=== PATIENT | male | born 1995 | race Caucasian/White ===

== ENCOUNTER → 2018-06-12 | Emergency (ER) | payer OTHER ==
[2018-06-12 18:41] VITALS: BP 121/65; PULSE 62; TEMP 98; BMI 26.6
--- NOTE | 2018-06-12 19:43 | PDOC ---
History of Present Illness - General Chief Complaint: Injury Stated Complaint: HAND INJURY Time Seen by Provider: 06/12/18 18:49 History Source: Patient - History of Present Illness Occurred: reports: this evening Severity: reports: moderate Upper Extremity Pain Location: right: 4th finger Method of Injury: reports: direct blow Past History - Past Medical History Home Medications: Ambulatory Orders Naproxen [EC-Naprosyn] 500 mg PO BID PRN #14 tablet.ec 11/13/15 - Suicide/Smoking/Psychosocial Hx Smoking History: Never smoked Have you smoked in the past 12 months: No Information on smoking cessation initiated: No Hx Alcohol Use: No Drug/Substance Use Hx: No Review of Systems - Review of Systems Musculoskeletal: Yes: Joint Pain, Joint Swelling *Physical Exam - Vital Signs Last Vital Signs Temp Pulse Resp BP Pulse Ox 98.0 F 62 16 121/65 100 06/12/18 18:36 06/12/18 18:36 06/12/18 18:36 06/12/18 18:36 06/12/18 18:36 - Physical Exam General Appearance: Yes: Appropriately Dressed. No: Apparent Distress HEENT: positive: Normal Voice Neck: positive: Supple Respiratory/Chest: negative: Respiratory Distress Extremity: positive: Other (swellign w/ ecchymosis to L 4th finger including MCP joint, FROMI to finger, no snuff box ttp) Integumentary: positive: Dry, Warm Neurologic: positive: Fully Oriented, Alert, Normal Mood/Affect ED Treatment Course - RADIOLOGY Radiology Studies Ordered: Category Date Time Status HAND- LEFT [RAD] Stat Radiology 06/12/18 19:13 Taken Medical Decision Making - Medical Decision Making 06/12/18 19:43 22-year-old male, no significant history here with left 4th finger pain, swelling and ecchymosis after injury. Pt states while playing basketball yesterday, he jammed finger against ball. Patient well-appearing and stable with some swelling, ecchymosis to left 4th MCP. X-ray unremarkable for the most part with possible tiny chip fracture to base of proximal phalanx of left 4th digit. Finger splint placed and patient instructed to take Motrin as needed for pain and follow-up with orthopedics as needed in 2 weeks *DC/Admit/Observation/Transfer Diagnosis at time of Disposition: Hand sprain Qualifiers: Encounter type: initial encounter Laterality: left Qualified Code(s): S63.92XA - Sprain of unspecified part of left wrist and hand, initial encounter - Discharge Dispostion Disposition: HOME Condition at time of disposition: Good - Referrals Referrals: Artur Slater MD [Staff Physician] - - Patient Instructions Printed Discharge Instructions: DI for Finger Sprain Additional Instructions: X-ray did not show any fracture. Apply ice to area of swelling and take Motrin as needed. If symptoms persist after 2 weeks, please follow-up with Dr. Slater of orthopedics - Post Discharge Activity Forms/Work/School Notes: Back to Work
--- NOTE | 2018-06-13 08:41 | PDOC ---
Patient Follow-up (Call Back) - Post ED Follow - Up Condition at time of discharge: Good Disposition at time of original discharge: HOME Reason for Call Back: Radiology (Discussed results with patient's mother who states she and pt will f/u with ortho anyi.)
--- NOTE | 2018-06-13 08:48 | PDOC ---
*Physical Exam - Vital Signs Last Vital Signs Temp Pulse Resp BP Pulse Ox 98.0 F 62 16 121/65 100 06/12/18 18:36 06/12/18 18:36 06/12/18 18:36 06/12/18 18:36 06/12/18 18:36 Medical Decision Making - Medical Decision Making Radiology called with results of hand x-ray for Dr. Gonzales. Radiologist stated that there was a fracture of the 4th digit proximal phalynx, and recommended splinting and ortho follow-up. Pt had been discharged by this time. I called the fast-track team who took report and will contact the patient. 06/13/18 08:46 *DC/Admit/Observation/Transfer Diagnosis at time of Disposition: Hand sprain Qualifiers: Encounter type: initial encounter Laterality: left Qualified Code(s): S63.92XA - Sprain of unspecified part of left wrist and hand, initial encounter - Discharge Dispostion Disposition: HOME Condition at time of disposition: Good - Referrals Referrals: Artur Slater MD [Staff Physician] - - Patient Instructions Printed Discharge Instructions: DI for Finger Sprain Additional Instructions: X-ray did not show any fracture. Apply ice to area of swelling and take Motrin as needed. If symptoms persist after 2 weeks, please follow-up with Dr. Slater of orthopedics - Post Discharge Activity Forms/Work/School Notes: Back to Work
== END | disposition home or self-care (01) ==
LOC: JERFT 18:30
PROC: 2W3KX1Z Immobilization of Left Finger using Splint (ICD-10-PCS; principal; 2018-06-12)
DX: S62.645A Nondisplaced fracture of proximal phalanx of left ring finger, initial encounter for closed fracture (principal); W21.05XA Struck by basketball, initial encounter; Y93.67 Activity, basketball; Y92.310 Basketball court as the place of occurrence of the external cause; Y99.8 Other external cause status
CPT/HCPCS: 29130; 73130-TC-LR-FY; 99281-25

== ENCOUNTER 2019-03-26 15:11 | Emergency (ER) | payer OTHER ==
[2019-03-26 15:16] VITALS: BP 123/72; PULSE 84; TEMP 98; BMI 25.8
[2019-03-26] MEDS ORDERED: IBUPROFEN 400 MG TABLET (FP) PO ONE ×2 (15:35→15:37)
--- NOTE | 2019-03-26 15:39 | PDOC ---
History of Present Illness - General Chief Complaint: Pain Stated Complaint: RT ANKLE SPRAIN Time Seen by Provider: 03/26/19 15:16 History Source: Patient - History of Present Illness Occurred: reports: this morning Severity: Yes: moderate Lower Extremity Pain Location: right: ankle Method of Injury: Yes: fell, twisted Past History - Past Medical History Allergies/Adverse Reactions: Allergies Allergy/AdvReac Type Severity Reaction Status Date / Time No Known Allergies Allergy Verified 03/26/19 15:15 Home Medications: Ambulatory Orders Naproxen [EC-Naprosyn] 500 mg PO BID PRN #14 tablet.ec 11/13/15 COPD: No - Suicide/Smoking/Psychosocial Hx Smoking History: Never smoked Have you smoked in the past 12 months: No Hx Alcohol Use: No Drug/Substance Use Hx: No Review of Systems - Review of Systems Musculoskeletal: Yes: Joint Pain, Joint Swelling *Physical Exam - Vital Signs Last Vital Signs Temp Pulse Resp BP Pulse Ox 98 F 84 18 123/72 98 03/26/19 15:12 03/26/19 15:12 03/26/19 15:12 03/26/19 15:12 03/26/19 15:12 - Physical Exam General Appearance: Yes: Appropriately Dressed, Mild Distress HEENT: positive: Normal Voice Extremity: positive: Tender (over R 5th proximal metatarsal/lateral malleolus, no sig swelling, NVI) Integumentary: positive: Dry, Warm Neurologic: positive: Fully Oriented, Alert, Normal Mood/Affect ED Treatment Course - RADIOLOGY Radiology Studies Ordered: Category Date Time Status ANKLE & FOOT-RIGHT* [RAD] Stat Radiology 03/26/19 15:19 Taken Medical Decision Making - Medical Decision Making 03/26/19 15:36 23 yo M, here w/ R ankle pain/swelling s/p twisting injury/fall this am. Able to bear weight but painful See exam R/o ankle fx -pain control -XR 03/26/19 15:42 XR neg for fx. EDUARDO applied and crutches given. To take motrin prn and f/u with orthopedics as needed *DC/Admit/Observation/Transfer Diagnosis at time of Disposition: Ankle sprain Qualifiers: Encounter type: initial encounter Involved ligament of ankle: unspecified ligament Laterality: right Qualified Code(s): S93.401A - Sprain of unspecified ligament of right ankle, initial encounter - Discharge Dispostion Disposition: HOME Condition at time of disposition: Good - Referrals - Patient Instructions Printed Discharge Instructions: DI for Ankle Sprain Additional Instructions: Use Eduardo and ice for swelling as needed. Take Motrin for pain and use crutches for assisted with weight bearing. If pain persist after 2 weeks, please follow-up with Dr. Delgado of orthopedics - Post Discharge Activity Forms/Work/School Notes: Back to Work
== END 2019-03-26 15:56 | disposition home or self-care (01) ==
LOC: JERFT 15:11
DX: S93.401A Sprain of unspecified ligament of right ankle, initial encounter (principal); W18.39XA Other fall on same level, initial encounter; Y93.89 Activity, other specified; Y92.89 Other specified places as the place of occurrence of the external cause; Y99.8 Other external cause status
CPT/HCPCS: 73610-TC-RT-FY; 73630-TC-RT-FY; 99281-25

== ENCOUNTER 2019-08-17 16:39 | Emergency (ER) | payer OTHER ==
[2019-08-17 16:53] VITALS: BP 122/54; PULSE 64; TEMP 98.4; BMI 24.3
[2019-08-17] MEDS ORDERED: DIPHTH,PERTUSS(ACELL),TET VAC 0.5 ML VIAL IM ONE (16:56)
--- NOTE | 2019-08-17 16:56 | PDOC ---
Rapid Medical Evaluation Chief Complaint: Laceration Time Seen by Provider: 08/17/19 16:50 Medical Evaluation: Allergies Allergy/AdvReac Type Severity Reaction Status Date / Time No Known Allergies Allergy Verified 08/17/19 16:49 08/17/19 16:50 23 year old c/o left index finger laceration reports cutting finger with a kitchen knife PE: patient alert ox3 + skin avulsion to the right index finger A: finger avulsion P: patient to the er for further management of care,. tetanus Discharge Disposition - Diagnosis Fingertip avulsion Qualifiers: Encounter type: initial encounter Qualified Code(s): S61.209A - Unspecified open wound of unspecified finger without damage to nail, initial encounter - Referrals - Patient Instructions - Post Discharge Activity
[2019-08-17] MEDS ORDERED: DIPHTH,PERTUSS(ACELL),TET 0.5 ML DISP.SYRIN IM ONE ×2 (17:09→17:11)
--- NOTE | 2019-08-17 17:21 | PDOC ---
History of Present Illness - General Chief Complaint: Laceration Stated Complaint: LACERATION Time Seen by Provider: 08/17/19 16:50 History Source: Patient Exam Limitations: No Limitations Past History - Past Medical History Allergies/Adverse Reactions: Allergies Allergy/AdvReac Type Severity Reaction Status Date / Time No Known Allergies Allergy Verified 08/17/19 16:49 Home Medications: Ambulatory Orders NK [No Known Home Medication] 08/17/19 COPD: No - Immunization History Immunization Up to Date: Yes - Psycho Social/Smoking Cessation Hx Smoking History: Current every day smoker Have you smoked in the past 12 months: No Information on smoking cessation initiated: No Hx Alcohol Use: No Drug/Substance Use Hx: No *Physical Exam - Vital Signs Last Vital Signs Temp Pulse Resp BP Pulse Ox 98.4 F 64 17 122/54 L 99 08/17/19 16:49 08/17/19 16:49 08/17/19 16:49 08/17/19 16:49 08/17/19 16:49 - Physical Exam General Appearance: No: Apparent Distress Extremity: positive: Other (+skin avulsed at tip of L index finger, nail spared , no active bleeding, no deformity of finger noted) Neurologic: positive: Alert ED Treatment Course - Medications Given in the ED: ED Medications Discontinued Medications Generic Name Dose Route Start Last Admin Trade Name Freq PRN Reason Stop Dose Admin Diphtheria/Tetanus/Acell Pertussis 0.5 ml 08/17/19 16:56 08/17/19 17:10 Adacel Adolescent/Adult - IM 08/17/19 16:57 Not Given .ONCE ONE Diphtheria/Tetanus/Acell Pertussis 0.5 ml 08/17/19 17:09 08/17/19 17:13 Boostrix - IM 08/17/19 17:10 0.5 ml .ONCE ONE Administration Medical Decision Making - Medical Decision Making 23 y/o M with no sig pmh presents with injury to L index finger from today. States he was cutting meat and cut tip of finger. Unsure of last tetanus. Denies other complaints. Site around wound cleaned with hydrogen peroxide Site covered with xeroform and sterile dressing Tetanus updated stable for dc 08/17/19 17:18 Discharge - Discharge Information Problems reviewed: Yes Clinical Impression/Diagnosis: Fingertip avulsion Qualifiers: Encounter type: initial encounter Qualified Code(s): S61.209A - Unspecified open wound of unspecified finger without damage to nail, initial encounter Condition: Stable Disposition: HOME - Admission No - Additional Discharge Information Prescription Drug Monitoring Program (I-STOP) results: I-STOP not reviewed - Follow up/Referral Referrals: Jane Sorto MD [Primary Care Provider] - - Patient Discharge Instructions Additional Instructions: Thank you for choosing [facility]. It was a pleasure taking care of you. You may change the dressing 1-2 times a day You may also apply Neosporin if you do not have Xeroform dressing available Return to the Emergency Department if your symptoms worsen or persist, you have fever, redness, streaking, purulent drainage, swelling or other concerning symptoms. - Post Discharge Activity
== END 2019-08-17 17:22 | disposition home or self-care (01) ==
LOC: JERFT 16:39
PROC: 3E0234Z Introduction of Serum, Toxoid and Vaccine into Muscle, Percutaneous Approach (ICD-10-PCS; principal; 2019-08-17)
DX: S61.201A Unspecified open wound of left index finger without damage to nail, initial encounter (principal); W26.0XXA Contact with knife, initial encounter; Y93.89 Activity, other specified; Y92.018 Other place in single-family (private) house as the place of occurrence of the external cause; Y99.8 Other external cause status
CPT/HCPCS: 90715; 99281-25